=== PATIENT | female | born 1960 | race Two or more races ===

== ENCOUNTER 2024-08-16 08:08 | Emergency (ER) | payer OTHER ==
[~2024-08-16] VITALS: Ht 154.9 cm; Wt 84.4 kg
--- NOTE | 2024-08-16 08:24 | ED.PDOC ---
History of Present Illness HPI Comments 63-year-old female presents with a chief complaint of back pain x 2 days. Patient states that her pain is localized to her thoracic spine, over her left trapezius muscle. Patient denies any injuries or trauma prior to onset of symptoms. Chief Complaint: Back Pain Time Seen by MD: 08:20 Reviewed Notes: Medications, Allergies Allergies: Coded Allergies: Diclofenac (Verified Allergy, Unknown, 08/16/24) Information Source: Patient Mode of Arrival: Ambulatory Severity: Moderate Timing: Days Duration: Since onset Prehospital treatment: None Past Medical History PAST MEDICAL HISTORY: Denies Surgical History: Denies all surgeries [employer]ESS [employer]EDER History: Denies all RE[employer]ER Hx Family History Family History: Reviewed,noncontributory to illness Social History Smoker: Non-Smoker Alcohol: Denies ETOH Use Drugs: Denies Drug Use Lives In: Home Constitutional: denies: chills, diaphoresis, fatigue, fever, malaise, sweats, weakness, others EENTM: denies: blurred vision, double vision, ear bleeding, ear discharge, ear drainage, ear pain, ear ringing, eye pain, eye redness, hearing loss, mouth pain, mouth swelling, nasal discharge, nose bleeding, nose congestion, nose pain, photophobia, tearing, throat pain, throat swelling, voice changes, others Respiratory: denies: cough, hemoptysis, orthopnea, SOB at rest, shortness of breath, SOB with excertion, stridor, wheezing, others Cardiovascular: denies: chest pain, dizzy spells, diaphoresis, Dyspnea on exertion, edema, irregular heart beat, left arm pain, lightheadedness, palpitations, PND, syncope, others Gastrointestinal: denies: abdomen distended, abdominal pain, blood streaked bowels, constipated, diarrhea, dysphagia, difficulty swallowing, hematemesis, melena, nausea, poor appetite, poor fluid intake, rectal bleeding, rectal pain, vomiting, others Genitourinary: denies: abnormal vagina bleeding, burning, dyspareunia, dysuria, flank pain, frequency, hematuria, incontinence, pain, , vagina discharge, urgency, others Neurological: denies: dizziness, fainting, headache, left sided numbness, left sided weakness, numbness, paresthesia, pre-existing deficit, right sided numbness, right sided weakness, seizure, speech problems, tingling, tremors, weakness, others Musculoskeletal: reports: back pain; denies: gout, joint pain, joint swelling, muscle pain, muscle stiffness, neck pain, others Integumetry: denies: bruises, change in color, change in hair/nails, dryness, laceration, lesions, lumps, rash, wounds, others Allergic/Immunocompromised: denies: Difficulty Healing, Frequent Infections, Hives, Itching, others Hematologic/Lymphatic: denies: anemia, blood clots, easy bleeding, easy bruising, swollen glands, others Endocrine: denies: excessive hunger, excessive sweating, excessive thirst, excessive urination, flushing, intolerance to cold, intolerance to heat, unexplained weight gain, unexplained weight loss, others Psychiatric: denies: anxiety, bipolar disorder, depression, hopeless, panic disorder, schizophrenia, sleepless, suicidal, others All Other Systems: Reviewed and Negative Physical Exam General Appearance: No Apparent Distress, Normal HEENT: Normal ENT Inspection, Pharynx Normal, TMs Normal Neck: Full Range of Motion, Non-Tender, Normal, Normal Inspection Respiratory: Chest Non-Tender, Lungs Clear, No Accessory Muscle Use, No Respiratory Distress, Normal Breath Sounds Cardiovascular: No Edema, No JVD, No Murmur, No Gallop, Normal Peripheral Pulses, Regular Rate/Rhythm Breast Exam: Deferred Gastrointestinal: No Organomegaly, Non Tender, No Pulsatile Mass, Normal Bowel Sounds, Soft Genitalia: Deferred Pelvic: Deferred Rectal: Deferred Extremities: No calf tenderness, Normal capillary refill, Normal inspection, Normal range of motion, No pedal edema, Tender (Mild Tenderness to Thoracic Spine over the left trapezius ) Musculoskeletal : Apperance: Normal Neurologic: Alert, hog tender II-XII nml as Tested, No Motor Deficits, Normal Affect, Normal Mood, No Sensory Deficits Cerebellar Function: Normal Reflexes: Normal Skin: Dry, Normal Color, Warm Lymphatic: No Adenopathy Was a procedure done? Was a procedure done?: No Differential Dx Considerations may include: radiculopathy, fracture, strain X-Ray, Labs, Meds, VS Vital Signs Date Time Temp Pulse Resp B/P (MAP) Pulse Ox O2 Delivery O2 Flow Rate FiO2 08/16/24 09:02 98.3 08/16/24 08:57 98.7 73 16 150/72 (98) 97 98.7 08/16/24 08:20 75 08/16/24 08:18 98.1 80 20 155/102 (119) 100 98.1 Current Medications Medications (Trade) Dose Ordered Sig/Jerri Route Start Time Stop Time Status Last Admin Ibuprofen (Motrin Tablet) 600 mg ONCE ONCE PO 08/16/24 08:15 08/16/24 08:19 DC 08/16/24 09:02 Time of 1ST Reevaluation: 08:50 Reevaluation 1ST: Unchanged Patient Education/Counseling: Diagnosis, Treatment, Prognosis, Need For Follow Up Family Education/Counseling: Diagnosis, Treatment, Prognosis, Need For Follow Up Departure 1 Departure Time of Disposition: 09:35 Impression: Primary Impression: Cervical spine degeneration Qualified Codes: M47.22 - Other spondylosis with radiculopathy, cervical region Additional Impression: Radiculopathy Qualified Codes: M54.12 - Radiculopathy, cervical region Disposition: 01 HOME / SELF CARE / HOMELESS Condition: Good e-Prescriptions Cyclobenzaprine Hcl (CYCLOBENZAPRINE HCL) 7.5 Mg Tab 7.5 MG PO Q8HP PRN, #6 TAB Prov: LUKE ROWAN MD 08/16/24 Hydrocodone-Acetaminophen (Hydrocodone Bitartrate/AC 5-325 mg) 1 Tab Tab 1 TAB PO Q8HP PRN, #6 TAB Prov: LUKE ROWAN MD 08/16/24 Discharged With: Self Critical Care Note Critical Care Time?: No Stability Stability form required: No Heart Score Heart Score: Heart Score Response (Comments) Value History N/A 0 EKG N/A 0 Age N/A 0 Risk Factors N/A 0 Troponin N/A 0 Total 0 I personally scribed for LUKE ROWAN MD ([email or web address]) on 08/16/24 at 08:24. Electronically submitted by Kayden Capone ([email or web address]). LUKE ROWAN MD Aug 16, 2024 08:24
--- NOTE | 2024-08-16 08:31 | ECG ---
[facility] Test Date: 2024-08-16 Test Time: 08:20:57 Pat Name: GERMAIN VILLA Department: ER Room: Gender: F Demo Coordinator: RUBY : 1960 Requested By: LUKE ROWAN Order Number: [id number] Reading MD: Eugene Stubbs Measurements Intervals [place] Rate: 75 P: 27 MT: 153 QRS: -38 QRSD: 110 T: -10 QT: 380 QTc: 425 Interpretive Statements Sinus rhythm Incomplete RBBB and LAFB Low voltage, precordial leads RSR' in V1 or V2, right VCD or RVH Electronically Signed On 08-16-2024 9:30:20 PDT by Eugene Stubbs Please click the below link to view image of tracing.
[2024-08-16 08:57] VITALS: BP 150/72; PULSE 73; RESP 16; O2SAT 97
[2024-08-16 09:02] VITALS: TEMP 98.3
[2024-08-16] MEDS: IBUPROFEN 600 MG TAB PO ONE (09:02)
--- NOTE | 2024-08-16 09:07 | DVH ---
EXAM: XY R SHOULDER 2+ VIEW XRAY HISTORY: pain COMPARISON: None TECHNIQUE: 3 views of the right shoulder were performed. FINDINGS: No acute fracture or dislocation are identified about the right shoulder. There is mild acromioclavi cular hypertrophy without significant loss of subacromial space. There is thoracic degenerative disc disease. IMPRESSION: 1. No acute fracture of the right shoulder. 2. Acromioclavicular hypertrophy.
--- NOTE | 2024-08-16 09:08 | DVH ---
INDICATION: pain TECHNIQUE: AP and lateral views of the thoracic spine were obtained. COMPARISON: None FINDINGS: No fractures or listhesis of the thoracic spine. There is moderate thoracic degenerative di sc disease with multiple bridging syndesmophytes present. There is mild thoracic dextroscoliosis. IMPRESSION: 1. No fracture of the thoracic spine. 2. Thoracic spondylosis with some degree of ankylosis. Correlate for possible ankylosing spondylitis .
--- NOTE | 2024-08-16 09:10 | DVH ---
EXAM: XY CERVICAL SPINE 3V HISTORY: pain COMPARISON: None TECHNIQUE: AP, lateral, swimmer's, and odontoid views of the cervical spine were performed. FINDINGS: No cervical fracture, listhesis, or prevertebral soft tissue edema are identified. There is advanced lower cervical degenerative disc disease. There is reversal of lower cervical kyphosis. IMPRESSION: 1. No fracture of the cervical spine. 2. Advanced lower cervical degenerative disc disease. 3. Reversal of lower cervical lordosis which may be chronic for the patient or due to muscle spasm.
[2024-08-16] MEDS ORDERED: HYDR-4902 PO (09:36)
[2024-08-16] MEDS ORDERED: CYCL-838 PO (09:36)
== END 2024-08-16 09:46 | disposition home or self-care (01) ==
LOC: ER 08:08
DX: M50.10 Cervical disc disorder with radiculopathy, unspecified cervical region (principal); Z88.1 Allergy status to other antibiotic agents
CPT/HCPCS: 72040; 72070; 73030; 93005